=== PATIENT | female | born 1980 | race Caucasian/White ===

== ENCOUNTER 2016-05-24 09:21 | Day surgery (SDC) | payer BC ==
[~2016-05-24] VITALS: Ht 170.2 cm; Wt 75.5 kg
[~2016-05-24 09:21] MED LIST: ABILIFY5 MG PO; ADIPEX-P37.5 MG PO; GILDESS1 EACH PO; IBUPROFEN800 MG PO; LIDODERM 5% P1 PATCH TD; MULTIPLE VITAM1 EACH PO; PERCOCET 5/31 TABLET PO; PRILOSEC20 MG PO; PROTONIX20 MG; PROTONIX40 MG PO; TUMS500 MG PO; TYLENOL REGULA325 MG PO; WELLBUTRIN XL300 MG PO
[2016-05-24 09:51] VITALS: BP 119/82
[2016-05-24 12:30] VITALS: BP 123/80
[2016-05-24 13:10] VITALS: BP 132/91
== END 2016-05-24 13:18 | disposition home or self-care (01) ==
LOC: SDC 09:21
DX: D06.9 Carcinoma in situ of cervix, unspecified (principal); K58.9 Irritable bowel syndrome, unspecified; Z88.8 Allergy status to other drugs, medicaments and biological substances; Z82.49 Family history of ischemic heart disease and other diseases of the circulatory system; Z83.49 Family history of other endocrine, nutritional and metabolic diseases; Z82.3 Family history of stroke; Z87.891 Personal history of nicotine dependence
CPT/HCPCS: 88305; 88342 TC; J1100; J2405; J3010

== ENCOUNTER 2016-09-25 18:41 | Emergency (ER) | payer BC, OTHER ==
[~2016-09-25] VITALS: Ht 170.2 cm; Wt 73.4 kg
[2016-09-25 19:49] LABS: HEMATOCRIT 36.5 % (36.0-46.0); MCH 29.2 PG (29.0-34.0); MCHC 33.7 G/DL (30.0-36.0); MCV 86.7 FL (83-99); MEAN PLAT.VOLUME 9.9 uM^3 (9.5-12.4); PLATELET COUNT 213 K/uL (156-360); RBC DIS.WIDTH-CV 12.2 % (11.8-14.6); RBC DIS.WIDTH-SD 38.4 % (39-53); RED BLOOD COUNT 4.21 M/uL (3.80-5.20); WHITE BLOOD COUNT 6.9 K/uL (4.1-10.2)
[2016-09-25 19:58] LABS: CHLORIDE 104 mEq/L (99-109); POTASSIUM 3.9 mEq/L (3.7-5.4); SODIUM 137 mEq/L (136-147)
[2016-09-25 19:59] LABS: GLUCOSE 101 mg/dL (70-99)
[2016-09-25 20:01] LABS: ANION GAP 9 MEQ/L (2-14)
[2016-09-25 20:03] LABS: GFR ESTIMATE (CALCULATED) > 59 mL/min/
[2016-09-25 20:04] LABS: UREA NITROGEN (BUN) 17 mg/dL (9-23)
[2016-09-25 20:09] LABS: TROP-I INTERPRETATION NEGATIVE; TROPONIN-I < 0.01 ng/mL (0.0-0.30)
[2016-09-25 20:37] LABS: TOTAL BILIRUBIN 0.3 mg/dL (0.0-1.0)
[2016-09-25 20:38] LABS: ALKALINE PHOSPHATASE 53 IU/L (3-129)
[2016-09-25 20:40] LABS: DIRECT BILIRUBIN 0.1 mg/dL (0.0-0.3)
[2016-09-25 20:41] LABS: LIPASE 30 U/L (1.0-51.0)
[2016-09-25] MEDS ORDERED: NAPROXEN500 MG PO (21:14)
[2016-09-25 21:43] VITALS: BP 115/83
== END 2016-09-25 21:43 | disposition home or self-care (01) ==
LOC: EME 18:41
DX: R07.81 Pleurodynia (principal); K59.00 Constipation, unspecified; J45.909 Unspecified asthma, uncomplicated; K21.9 Gastro-esophageal reflux disease without esophagitis; F17.200 Nicotine dependence, unspecified, uncomplicated
CPT/HCPCS: 71020; 74000; 80048; 80076; 83690; 84484; 85027; 93005; 99281; 99284

== ENCOUNTER 2017-02-23 19:36 | Emergency (ER) | payer BC ==
[~2017-02-23] VITALS: Ht 167.6 cm; Wt 70.9 kg
[~2017-02-23 19:36] MED LIST changes: +NAPROXEN500 MG PO
[2017-02-23 20:31] LABS: MCH 29.9 PG (29.0-34.0); MCHC 33.4 G/DL (30.0-36.0); MCV 89.4 FL (83-99); MEAN PLAT.VOLUME 10.5 uM^3 (9.5-12.4); PLATELET COUNT 225 K/uL (156-360); RBC DIS.WIDTH-CV 12.5 % (11.8-14.6); RBC DIS.WIDTH-SD 41.1 % (39-53); RED BLOOD COUNT 4.25 M/uL (3.80-5.20); WHITE BLOOD COUNT 7.2 K/uL (4.1-10.2)
[2017-02-23 20:38] LABS: CHLORIDE 107 mEq/L (99-109); POTASSIUM 3.8 mEq/L (3.7-5.4); SODIUM 140 mEq/L (136-147)
[2017-02-23 20:40] LABS: GLUCOSE 114 mg/dL (70-99)
[2017-02-23 20:42] LABS: ANION GAP 8 MEQ/L (2-14)
[2017-02-23 20:44] LABS: GFR ESTIMATE (CALCULATED) > 59 mL/min/
[2017-02-23 20:45] LABS: UREA NITROGEN (BUN) 15 mg/dL (9-23)
[2017-02-23 20:54] LABS: TROP-I INTERPRETATION NEGATIVE; TROPONIN-I < 0.01 ng/mL (0.0-0.30)
[2017-02-23] MEDS ORDERED: PREDNISONE50 MG PO (21:25)
[2017-02-23 21:57] VITALS: BP 111/77
== END 2017-02-23 21:58 | disposition home or self-care (01) ==
LOC: EME 19:36
DX: R07.0 Pain in throat (principal); R07.89 Other chest pain; R20.2 Paresthesia of skin; T39.395A Adverse effect of other nonsteroidal anti-inflammatory drugs [NSAID], initial encounter; Z72.0 Tobacco use
CPT/HCPCS: 80048; 84484; 85027; 93005; 99281; 99284; J7512